=== PATIENT | female | born 1985 | race Caucasian/White ===

== ENCOUNTER 2019-05-03 11:09 | Day surgery (SDC) | payer MEDICAID ==
[2019-05-03] MEDS: SOD CHLORIDE 0.9% 1,000 ML IV (12:39)
[2019-05-03] MEDS ORDERED: LIDOCAINE 2% (SDV) 5 ML INJ (14:36)
[2019-05-03] MEDS ORDERED: PROPOFOL 20 ML (14:36)
[2019-05-03] MEDS ORDERED: MEPERIDINE 100 MG INJ (14:36)
[2019-05-03] MEDS ORDERED: ONDANSETRON 4 MG INJ (14:36)
[2019-05-03] MEDS ORDERED: METOCLOPRAMIDE 10 MG INJ (14:36)
[2019-05-03] MEDS ORDERED: CEFAZOLIN 1 GM INJ (14:36)
[2019-05-03] MEDS: CEFAZOLIN 1 GM/50 ML (PMX) 50 ML IVPB (14:56)
[2019-05-03] MEDS ORDERED: NALOXONE (0.4 MG/ML) INJ (15:39)
[2019-05-03] MEDS ORDERED: HYDROmorphONE 1 MG/5 ML IV SYRINGE IV ×3 (15:57→16:00)
[2019-05-03] MEDS ORDERED: EPHEDrine 25 MG/5 ML SYG IV (16:00)
[2019-05-03] MEDS ORDERED: LABETALOL HCL 20MG INJ IV (16:00)
[2019-05-03] MEDS ORDERED: OXYCODONE/ACETAMINOPHEN (5/325) TAB PO (16:00)
[2019-05-03] MEDS ORDERED: FENTAnyl 50 MCG/ML VIAL IV ×3 (16:00)
[2019-05-03] MEDS ORDERED: MIDAZOLAM 1 MG/ML 2 ML INJ IV (16:00)
[2019-05-03] MEDS ORDERED: METOCLOPRAMIDE 10 MG INJ IV (16:00)
[2019-05-03] MEDS ORDERED: hydrALAzine 20 MG INJ IV (16:00)
[2019-05-03] MEDS ORDERED: MEPERIDINE 25 MG INJ IV (16:00)
[2019-05-03] MEDS ORDERED: DIPHENHYDRAMINE 50 MG INJ IV (16:00)
[2019-05-03] MEDS: HYDROmorphONE 1 MG/5 ML IV SYRINGE IV (16:02)
[2019-05-03] MEDS: ONDANSETRON 4 MG INJ IV (16:05)
[2019-05-03] MEDS: OXYCODONE/ACETAMINOPHEN (5/325) TAB PO (16:05)
== END 2019-05-03 17:13 | disposition home or self-care (01) ==
LOC: SDS 11:09
DX: D24.2 Benign neoplasm of left breast (principal)
CPT/HCPCS: 19120; 84703; 88307